=== PATIENT | male | born 1970 | race Caucasian/White ===

== ENCOUNTER 2021-11-13 07:29 | Day surgery (SDC) | payer BC ==
[~2021-11-13 07:29] MED LIST: Midazolam 1 MG/ML 2 ML SDV ONE; Propofol 200 MG/20 ML SDV ONE; fentaNYL 100 MCG/2 ML SDV ONE
[2021-11-13] MEDS ORDERED: Sodium Chloride 0.9% 1,000 ML IV SCH (08:00)
== END 2021-11-13 10:51 | disposition home or self-care (01) ==
LOC: JP.SDS 07:29
PROVIDERS: ATTEND Surgery
DX: Z12.11 Encounter for screening for malignant neoplasm of colon (principal); K63.5 Polyp of colon; I10 Essential (primary) hypertension
CPT/HCPCS: 88305; J2250; J2704; J3010; J7030